=== PATIENT | male | born 1985 | race Caucasian/White ===

== ENCOUNTER 2016-12-23 13:41 | Emergency (ER) | payer OTHER ==
[~2016-12-23] VITALS: Ht 175.3 cm; Wt 100.0 kg
[2016-12-23 13:55] VITALS: BP 151/76
[2016-12-23] MEDS ORDERED: AMPICILLIN/SULBACTAM 3 GM in SODIUM CHLORIDE 0.9% 100 ML IVPB ONE (14:30)
[2016-12-23] MEDS ORDERED: SODIUM CHLORIDE FLUSH 10ML SYR IVF ONE (14:30)
== END 2016-12-23 15:56 | disposition home or self-care (01) ==
LOC: ED 15:50
DX: L03.011 Cellulitis of right finger (principal)
CPT/HCPCS: 73140; 96365; 99284; J0295

== ENCOUNTER 2016-12-25 10:29 | Emergency (ER) | payer OTHER ==
[~2016-12-25] VITALS: Ht 175.3 cm; Wt 99.0 kg
[2016-12-25 10:31] VITALS: BP 128/78
[2016-12-25] MEDS ORDERED: BACITRACIN ZINC OINT 500U/GM, 0.9 GM TP ONE (11:00)
== END 2016-12-25 11:18 | disposition home or self-care (01) ==
LOC: ED 11:12
DX: S61.011D Laceration without foreign body of right thumb without damage to nail, subsequent encounter (principal); X58.XXXD Exposure to other specified factors, subsequent encounter
CPT/HCPCS: 99283